=== PATIENT | female | born 1995 | race American Indian/Alaskan Native ===

== ENCOUNTER 2017-03-24 22:09 | Emergency (ER) | payer SELFPAY ==
[2017-03-24 23:00] LABS: Basophils % (Auto) 0.8 % (0.0-1.8); Eosinophils % (Auto) 1.9 % (0.0-4.3); Hematocrit 37.7 % (30.3-42.9); Hemoglobin 12.5 gm/dl (10.1-14.3); Mean Corpuscular HGB Conc 33 % (30-34); Mean Corpuscular Hemoglobin 30 pg (28-32); Mean Corpuscular Volume 90 fl (79-97); Platelet Count 243 K/mm3 (140-440); Red Blood Count 4.18 M/mm3 (3.65-5.03); Red Cell Distribution Width 14.2 % (13.2-15.2); White Blood Count 7.9 K/mm3 (4.5-11.0)
[2017-03-24 23:16] LABS: Alanine Aminotransferase 10 units/L (7-56); Albumin 4.1 g/dL (3.9-5); Albumin/Globulin Ratio 1.4 %; Alkaline Phosphatase 45 units/L (35-129); Anion Gap 16 mmol/L; BUN/Creatinine Ratio 21.66; Blood Urea Nitrogen 13 mg/dL (7-17); Calcium 8.9 mg/dL (8.4-10.2); Carbon Dioxide 22 mmol/L (22-30); Chloride 106.3 mmol/L (98-107); Glucose 92 mg/dL (65-100); Lipase 66 units/L (13-60); Sodium 140 mmol/L (137-145)
[2017-03-25 00:19] VITALS: BP 126/102
--- NOTE | 2017-03-25 01:33 | Ultrasound Report ---
FINAL REPORT PROCEDURE: US OB TRANSVAGINAL TECHNIQUE: Real-time transvaginal sonography of the uterus, placenta, amniotic fluid, adnexa, and fetus was performed with image documentation. Measurements were obtained to determine age/size. M-mode Doppler was used to document heartbeat. CPT 32693 HISTORY: abd pain COMPARISON: No prior studies are available for comparison. FINDINGS: There is an intrauterine gestational sac measuring 5.4 millimeters. This corresponds to an estimated gestational age of 5 weeks and 2 days. No pole, yolk sac or cardiac activity is seen. Uterus measures 10.4 x 5.1 x 6 centimeters. Right ovary measures 3.7 x 2 x 2.3 centimeters. Left ovary measures 1.9 x 1.7 x 1.5 centimeters. There is no ovarian mass or torsion. There is no free fluid. IMPRESSION: Probable normal early intrauterine gestation at 5 weeks and 2 days. However at this time no pole, yolk sac or cardiac activity is seen. Followup is recommended.
--- NOTE | 2017-03-25 01:33 | Ultrasound Report ---
FINAL REPORT PROCEDURE: US OB TRANSABDOMINAL TECHNIQUE: Real-time transabdominal sonography of the uterus, placenta, amniotic fluid, adnexa, and fetus was performed with image documentation. Measurements were obtained to determine age/size. M-mode Doppler was used to document heartbeat. HISTORY: abd pain COMPARISON: No prior studies are available for comparison. FINDINGS: There is an intrauterine gestational sac measuring 5.4 millimeters. This corresponds to an estimated gestational age of 5 weeks and 2 days. No pole, yolk sac or cardiac activity is seen. Uterus measures 10.4 x 5.1 x 6 centimeters. Right ovary measures 3.7 x 2 x 2.3 centimeters. Left ovary measures 1.9 x 1.7 x 1.5 centimeters. There is no ovarian mass or torsion. There is no free fluid. IMPRESSION: Probable normal early intrauterine gestation at 5 weeks and 2 days. However at this time no pole, yolk sac or cardiac activity is seen. Followup is recommended.
[2017-03-25 01:50] LABS: Bilirubin,Urine NEG (Negative); Blood,Urine NEG (Negative); Ketones,Urine NEG (Negative); Leukocyte Esterase,Urine TR (Negative); Mucus,Urine FEW /HPF; Nitrite,Urine NEG (Negative); Protein,Urine <15 mg/dL mg/dL (Negative)
--- NOTE | 2017-03-28 19:26 | ED Elopement Review ---
ED Pt Elopement review - Results review Lab results: Laboratory Tests 03/24/17 03/24/17 03/24/17 22:43 22:43 22:43 WBC 7.9 RBC 4.18 Hgb 12.5 Hct 37.7 MCV 90 MCH 30 MCHC 33 RDW 14.2 Plt Count 243 Lymph % (Auto) 46.9 H [place]anner % (Auto) 6.9 Eos % (Auto) 1.9 Baso % (Auto) 0.8 Lymph # 3.7 Banner # 0.5 Eos # 0.1 Baso # 0.1 Seg Neutrophils % 43.5 Seg Neutrophils # 3.4 Sodium 140 Potassium 4.0 Chloride 106.3 Carbon Dioxide 22 Anion Gap 16 BUN 13 Creatinine 0.6 L Estimated GFR > 60 BUN/Creatinine Ratio 21.66 Glucose 92 Calcium 8.9 Total Bilirubin 0.20 AST 16 ALT 10 Alkaline Phosphatase 45 Total Protein 7.0 Albumin 4.1 Albumin/Globulin Ratio 1.4 Lipase 66 H HCG, Qual Positive HCG, Quant Urine Color Urine Turbidity Urine pH Ur Specific [place] Urine Protein Urine Glucose (UA) Urine Ketones Urine Blood Urine Nitrite Urine Bilirubin Urine Urobilinogen Ur Leukocyte Esterase Urine WBC (Auto) Urine RBC (Auto) U Epithel Cells (Auto) Urine Mucus 03/25/17 03/25/17 00:28 00:41 WBC RBC Hgb Hct MCV MCH MCHC RDW Plt Count Lymph % (Auto) [place]anner % (Auto) Eos % (Auto) Baso % (Auto) Lymph # [place]anner # Eos # Baso # Seg Neutrophils % Seg Neutrophils # Sodium Potassium Chloride Carbon Dioxide Anion Gap BUN Creatinine Estimated GFR BUN/Creatinine Ratio Glucose Calcium Total Bilirubin AST ALT Alkaline Phosphatase Total Protein Albumin Albumin/Globulin Ratio Lipase HCG, Qual HCG, Quant 2756 H Urine Color Yellow Urine Turbidity Clear Urine pH 7.0 Ur Specific [place] 1.024 Urine Protein <15 mg/dl Urine Glucose (UA) Neg Urine Ketones Neg Urine Blood Neg Urine Nitrite Neg Urine Bilirubin Neg Urine Urobilinogen 4.0 Ur Leukocyte Esterase Tr Urine WBC (Auto) 4.0 Urine RBC (Auto) 2.0 U Epithel Cells (Auto) 4.0 Urine Mucus Few - Call Back decision Pt Call Back Decision: Pt to F/U with PMD ( patient with abdominal pain and is to follow-up with [facility] TECHNICIAN to initiate outpatient care)
== END 2017-03-25 00:42 | disposition left against medical advice (07) ==
LOC: ED 22:09
DX: R10.9 Unspecified abdominal pain (principal); R11.0 Nausea; R89.8 Other abnormal findings in specimens from other organs, systems and tissues; Z53.21 Procedure and treatment not carried out due to patient leaving prior to being seen by health care provider
CPT/HCPCS: 36415; 76801; 76817; 80053; 81001; 83690; 84702; 84703; 85025

== ENCOUNTER 2020-02-02 23:25 | Emergency (ER) | payer SELFPAY ==
[2020-02-02 23:29] VITALS: BP 108/57
--- NOTE | 2020-02-03 00:28 | Emergency Department Report ---
ED General Adult HPI - General Chief complaint: Upper Respiratory Infection Stated complaint: LOW BLOOD PRESSURE,LIGHT HEADED,COUGH Source: patient Mode of arrival: Ambulatory Limitations: No Limitations - History of Present Illness Initial comments: Patient is a 24-year-old -[place]ym[place] female with a history of anxiety and depression who presented to the ED with complaint of shortness of breath, chest tightness, insomnia and generalized weakness and stated that he felt scared about being infected with coronavirus such that she has not been able to sleep for the last 3 days. Patient denies dizziness, syncope, chest pain, abdominal pain, nausea and vomiting, fever, chills, headache, back pain, diarrhea, change in vision or syncope. Patient states that no one else at home is had any similar symptoms. Patient states that she is stressed out because of the fact that she is unable to work at this time and that even her is not working yet she has 6 children to take care of. MD Complaint: Dyspnea, sore throat, insomnia -: Sudden, days(s) (3) Location: chest Radiation: non-radiation Severity scale (0 -10): 2 Quality: dull Consistency: intermittent Improves with: none Worsens with: none Associated Symptoms: denies other symptoms, shortness of breath, weakness. denies: confusion, chest pain, cough, diaphoresis, fever/chills, headaches, loss of appetite, malaise, nausea/vomiting, rash, seizure, syncope Treatments Prior to Arrival: none - Related Data Previous Rx's Medication Instructions Recorded Last Taken Type Nitrofurantoin [place]/M-Cryst 100 mg PO Q12HR #20 capsule 02/08/14 Unknown Rx [Macrobid] hydrOXYzine PAMOATE [Vistaril] 25 mg PO Q6HR PRN #30 capsule 02/03/20 Unknown Rx Allergies Allergy/AdvReac Type Severity Reaction Status Date / Time No Known Allergies Allergy Verified 02/03/14 20:24 ED Review of Systems ROS: Stated complaint: LOW BLOOD PRESSURE,LIGHT HEADED,COUGH Other details as noted in HPI Constitutional: denies: chills, fever Eyes: denies: eye pain, eye discharge, vision change ENT: throat pain. denies: ear pain Respiratory: shortness of breath. denies: cough, wheezing Cardiovascular: denies: chest pain, palpitations Endocrine: no symptoms reported Gastrointestinal: denies: abdominal pain, nausea, diarrhea Genitourinary: denies: urgency, dysuria, discharge Musculoskeletal: denies: back pain, joint swelling, arthralgia Skin: denies: rash, lesions Neurological: denies: headache, weakness, paresthesias Psychiatric: anxiety. denies: depression, visual hallucinations, homicidal thoughts, suicidal thoughts Hematological/Lymphatic: denies: easy bleeding, easy bruising ED Past Medical Hx - Past Medical History Hx Hypertension: No Hx Diabetes: No Hx Deep Vein Thrombosis: No Hx Renal Disease: No Hx Sickle Cell Disease: No Hx Seizures: No Hx Psychiatric Treatment: Yes Hx Asthma: Yes Hx HIV: No Additional medical history: low blood sugar and low BP - Surgical History Additional Surgical History: tonsilectomy and adenoids, - Social History Smoking Status: Current Some Day Smoker Substance Use Type: None - Medications Home Medications: Home Medications Medication Instructions Recorded Confirmed Last Taken Type Nitrofurantoin [place]/M-Cryst 100 mg PO Q12HR #20 capsule 02/08/14 Unknown Rx [Macrobid] hydrOXYzine PAMOATE [Vistaril] 25 mg PO Q6HR PRN #30 capsule 02/03/20 Unknown Rx ED Physical Exam - General Limitations: No Limitations General appearance: alert, in no apparent distress - Head Head exam: Present: atraumatic, normocephalic, normal inspection - Eye Eye exam: Present: normal appearance, PERRL, EOMI Pupils: Present: normal accommodation - ENT ENT exam: Present: normal exam, normal orophraynx, mucous membranes moist, TM's normal bilaterally, normal external ear exam - Neck Neck exam: Present: normal inspection, full ROM - Respiratory Respiratory exam: Present: normal lung sounds bilaterally. Absent: respiratory distress, wheezes, rales, rhonchi, stridor, chest wall tenderness, accessory muscle use - Cardiovascular Cardiovascular Exam: Present: regular rate, normal rhythm, normal heart sounds. Absent: systolic murmur, diastolic murmur, rubs, gallop - GI/Abdominal GI/Abdominal exam: Present: soft, normal bowel sounds. Absent: tenderness, guarding, rebound, hyperactive bowel sounds, organomegaly - Extremities Exam Extremities exam: Present: normal inspection, full ROM, normal capillary refill - Back Exam Back exam: Present: normal inspection, full ROM. Absent: tenderness, CVA tenderness (R), muscle spasm, paraspinal tenderness, vertebral tenderness - Neurological Exam Neurological exam: Present: alert, oriented X3, CN II-XII intact, normal gait, reflexes normal - Psychiatric Psychiatric exam: Present: normal affect, depressed, anxious. Absent: agitated, flat affect, manic, homicidal ideation, suicidal ideation - Skin Skin exam: Present: warm, dry, intact, normal color. Absent: rash ED Course Vital Signs 02/02/20 23:27 Temperature 97.8 F Pulse Rate 76 Respiratory 18 Rate Blood Pressure 108/57 O2 Sat by Pulse 99 Oximetry ED Medical Decision Making - Medical Decision Making This is a 24-year-old female with a history of anxiety and depression who presented to the ED with worsening shortness of breath, feeling scared, chest tightness and insomnia with generalized weakness and sore throat for the last 3 days. In the ED, patient is alert and oriented x3 and is not in distress. Patient symptoms are likely due to panic attack, anxiety or worsening depression based on the history and physical exam findings. Patient was discharged home on Vistaril for anxiety and advised to follow-up with her primary care physician in 3 to 5 days for reevaluation. Patient was advised to return to the ED immediately if symptoms get worse. - Differential Diagnosis anxiety, panic attacks; depression; URI Critical care attestation.: If time is entered above; I have spent that time in minutes in the direct care of this critically ill patient, excluding procedure time. ED Disposition Clinical Impression: Anxiety as acute reaction to exceptional stress, Shortness of breath Disposition: DC-01 TO HOME OR SELFCARE Is pt being admited?: No Does the pt Need Aspirin: No Condition: Stable Instructions: Dyspnea (ED), Generalized Anxiety Disorder (ED) Additional Instructions: All your symptoms are likely due to anxiety or panic attack. Therefore take medication as advised, follow-up with your primary care physician in 3 to 5 days for reevaluation. Return to the ED immediately if symptoms get worse. Prescriptions: hydrOXYzine PAMOATE [Vistaril] 25 mg PO Q6HR PRN #30 capsule PRN Reason: Anxiety Referrals: [facility] [Provider Group] - 3-5 Days Time of Disposition: 00:29 Print Language: ROMANSH
== END 2020-02-03 00:45 | disposition home or self-care (01) ==
LOC: ED 23:25
DX: F41.9 Anxiety disorder, unspecified (principal); F43.0 Acute stress reaction; R06.02 Shortness of breath; J45.909 Unspecified asthma, uncomplicated; F17.200 Nicotine dependence, unspecified, uncomplicated; Z98.890 Other specified postprocedural states; Z79.899 Other long term (current) drug therapy
CPT/HCPCS: 99281

== ENCOUNTER 2020-02-22 00:41 | Inpatient (IN) | payer OTHER ==
[2020-02-22] MEDS ORDERED: ONDANSETRON 4 MG/2 ML INJ IV ONE ×2 (01:45→05:11)
[2020-02-22] MEDS ORDERED: SODIUM CHLORIDE 0.9% 1000 ML 1,000 ML IV ONE (01:45)
[2020-02-22] MEDS ORDERED: MORPHINE 4 MG/1 ML INJ IV ONE (01:45)
[2020-02-22 01:48] LABS: Basophils # (Auto) 0.1 K/mm3 (0.0-0.1); Basophils % (Auto) 0.9 % (0.0-1.8); Eosinophils # (Auto) 0.1 K/mm3 (0.0-0.4); Eosinophils % (Auto) 1.2 % (0.0-4.3); Hematocrit 42.7 % (30.3-42.9); Hemoglobin 14.6 gm/dl (10.1-14.3); Lymphocytes % (Auto) 17.7 % (13.4-35.0); Mean Corpuscular HGB Conc 34 % (30-34); Mean Corpuscular Volume 96 fl (79-97); Monocytes # (Auto) 0.8 K/mm3 (0.0-0.8); Monocytes % (Auto) 7.1 % (0.0-7.3); Platelet Count 201 K/mm3 (140-440); Red Blood Count 4.44 M/mm3 (3.65-5.03); Red Cell Distribution Width 12.5 % (13.2-15.2)
[2020-02-22 02:12] LABS: Alanine Aminotransferase 11 units/L (7-56); Albumin 4.8 g/dL (3.9-5); BUN/Creatinine Ratio 16; Blood Urea Nitrogen 11 mg/dL (7-17); Calcium 9.3 mg/dL (8.4-10.2); Hemolysis Index 3
[2020-02-22 02:20] LABS: Bilirubin,Urine NEG (Negative); Blood,Urine NEG (Negative); Color,Urine Yellow (Yellow); Mucus,Urine FEW /HPF; Protein,Urine <15 mg/dL mg/dL (Negative); RBC,Urine < 1.0 /HPF (0.0-6.0)
--- NOTE | 2020-02-22 02:27 | Emergency Department Report ---
ED Abdominal Pain HPI - General Chief Complaint: Abdominal Pain Stated Complaint: SEVERE ABDOMINAL PAIN Time Seen by Provider: 02/22/20 01:46 Source: patient Mode of arrival: Ambulatory Limitations: No Limitations - History of Present Illness Initial Comments: Patient is a 24-year-old female presents emergency room complaints of periumbilical abdominal pain that began last night. She states it feels like a sharp stabbing pain. She states that she has associated nausea. She states that she forced herself to have one episode of vomiting. She states that she has had normal bowel movements. She denies any diarrhea or urinary symptoms. She denies any past medical history or allergies to medications. She states her last menstrual cycle was January 25. She states that she has had 4 C-sections, she denies any other abdominal surgeries. Severity scale (0 -10): 4 - Related Data Previous Rx's Medication Instructions Recorded Last Taken Type Nitrofurantoin [place]/M-Cryst 100 mg PO Q12HR #20 capsule 02/08/14 Unknown Rx [Macrobid] hydrOXYzine PAMOATE [Vistaril] 25 mg PO Q6HR PRN #30 capsule 02/03/20 Unknown Rx Allergies Allergy/AdvReac Type Severity Reaction Status Date / Time No Known Allergies Allergy Verified 02/22/20 04:22 ED Review of Systems ROS: Stated complaint: SEVERE ABDOMINAL PAIN Other details as noted in HPI Comment: All other systems reviewed and negative ED Past Medical Hx - Past Medical History Hx Hypertension: No Hx Diabetes: No Hx Deep Vein Thrombosis: No Hx Renal Disease: No Hx Sickle Cell Disease: No Hx Seizures: No Hx Psychiatric Treatment: Yes Hx Asthma: Yes Hx HIV: No Additional medical history: low blood sugar and low BP - Surgical History Additional Surgical History: tonsilectomy and adenoids, - Social History Smoking Status: Never Smoker Substance Use Type: None - Medications Home Medications: Home Medications Medication Instructions Recorded Confirmed Last Taken Type Nitrofurantoin [place]/M-Cryst 100 mg PO Q12HR #20 capsule 02/08/14 Unknown Rx [Macrobid] hydrOXYzine PAMOATE [Vistaril] 25 mg PO Q6HR PRN #30 capsule 02/03/20 Unknown Rx ED Physical Exam - General Limitations: No Limitations General appearance: alert, in no apparent distress - Head Head exam: Present: atraumatic, normocephalic - Eye Eye exam: Present: normal appearance - ENT ENT exam: Present: mucous membranes moist - Respiratory Respiratory exam: Present: normal lung sounds bilaterally. Absent: respiratory distress, wheezes, rales, rhonchi, stridor, chest wall tenderness, accessory muscle use, decreased breath sounds, prolonged expiratory - Cardiovascular Cardiovascular Exam: Present: regular rate, normal rhythm, normal heart sounds. Absent: systolic murmur, diastolic murmur, rubs, gallop - GI/Abdominal GI/Abdominal exam: Present: soft, tenderness (periumbilical), normal bowel sounds. Absent: distended, guarding, rebound, rigid - Neurological Exam Neurological exam: Present: alert, oriented X3 - Psychiatric Psychiatric exam: Present: normal affect, normal mood - Skin Skin exam: Present: warm, dry, intact ED Course Vital Signs 02/22/20 00:46 Temperature 97.9 F Pulse Rate 78 Respiratory 18 Rate Blood Pressure 104/56 O2 Sat by Pulse 99 Oximetry - Consultations Consultation #1: 02/22/20 04:[address] Suh, general surgery recommended to admit to hospitalist, will see patient this morning 02/22/20 04:[address] Aviles, hospitalist, will accept and resume care of patient, will admit to hospital ED Medical Decision Making - Lab Data Result diagrams: 02/22/20 01:36 02/22/20 01:36 Lab Results 02/22/20 02/22/20 02/22/20 Range/Units 01:36 01:36 01:36 WBC 11.5 H (4.5-11.0) K/mm3 RBC 4.44 (3.65-5.03) M/mm3 Hgb 14.6 H (10.1-14.3) gm/dl Hct 42.7 (30.3-42.9) % MCV 96 (79-97) fl MCH 33 H (28-32) pg MCHC 34 (30-34) % RDW 12.5 L (13.2-15.2) % Plt Count 201 (140-440) K/mm3 Lymph % (Auto) 17.7 (13.4-35.0) % [place] % (Auto) 7.1 (0.0-7.3) % Eos % (Auto) 1.2 (0.0-4.3) % Baso % (Auto) 0.9 (0.0-1.8) % Lymph # 2.0 (1.2-5.4) K/mm3 [place] # 0.8 (0.0-0.8) K/mm3 Eos # 0.1 (0.0-0.4) K/mm3 Baso # 0.1 (0.0-0.1) K/mm3 Seg Neutrophils % 73.1 H (40.0-70.0) % Seg Neutrophils # 8.4 H (1.8-7.7) K/mm3 Sodium 139 (137-145) mmol/L Potassium 4.0 (3.6-5.0) mmol/L Chloride 103.8 (98-107) mmol/L Carbon Dioxide 25 (22-30) mmol/L Anion Gap 14 mmol/L BUN 11 (7-17) mg/dL Creatinine 0.7 (0.7-1.2) mg/dL Estimated GFR > 60 ml/min BUN/Creatinine Ratio 16 % Glucose 100 (65-100) mg/dL Calcium 9.3 (8.4-10.2) mg/dL Total Bilirubin 0.20 (0.1-1.2) mg/dL AST 17 (5-40) units/L ALT 11 (7-56) units/L Alkaline Phosphatase 44 (35-129) units/L Total Protein 7.5 (6.3-8.2) g/dL Albumin 4.8 (3.9-5) g/dL Albumin/Globulin Ratio 1.8 % Lipase 42 (13-60) units/L HCG, Qual (Negative) Urine Color (Yellow) Urine Turbidity (Clear) Urine pH (5.0-7.0) Ur Specific [place] (1.003-1.030) Urine Protein (Negative) mg/dL Urine Glucose (UA) (Negative) mg/dL Urine Ketones (Negative) mg/dL Urine Blood (Negative) Urine Nitrite (Negative) Urine Bilirubin (Negative) Urine Urobilinogen (<2.0) mg/dL Ur Leukocyte Esterase (Negative) Urine WBC (Auto) (0.0-6.0) /HPF Urine RBC (Auto) (0.0-6.0) /HPF U Epithel Cells (Auto) (0-13.0) /HPF Urine Mucus /HPF 02/22/20 02/22/20 Range/Units 01:36 01:56 WBC (4.5-11.0) K/mm3 RBC (3.65-5.03) M/mm3 Hgb (10.1-14.3) gm/dl Hct (30.3-42.9) % MCV (79-97) fl MCH (28-32) pg MCHC (30-34) % RDW (13.2-15.2) % Plt Count (140-440) K/mm3 Lymph % (Auto) (13.4-35.0) % [place] % (Auto) (0.0-7.3) % Eos % (Auto) (0.0-4.3) % Baso % (Auto) (0.0-1.8) % Lymph # (1.2-5.4) K/mm3 [place] # (0.0-0.8) K/mm3 Eos # (0.0-0.4) K/mm3 Baso # (0.0-0.1) K/mm3 Seg Neutrophils % (40.0-70.0) % Seg Neutrophils # (1.8-7.7) K/mm3 Sodium (137-145) mmol/L Potassium (3.6-5.0) mmol/L Chloride (98-107) mmol/L Carbon Dioxide (22-30) mmol/L Anion Gap mmol/L BUN (7-17) mg/dL Creatinine (0.7-1.2) mg/dL Estimated GFR ml/min BUN/Creatinine Ratio % Glucose (65-100) mg/dL Calcium (8.4-10.2) mg/dL Total Bilirubin (0.1-1.2) mg/dL AST (5-40) units/L ALT (7-56) units/L Alkaline Phosphatase (35-129) units/L Total Protein (6.3-8.2) g/dL Albumin (3.9-5) g/dL Albumin/Globulin Ratio % Lipase (13-60) units/L HCG, Qual Negative (Negative) Urine Color Yellow (Yellow) Urine Turbidity Clear (Clear) Urine pH 5.0 (5.0-7.0) Ur Specific [place] 1.023 (1.003-1.030) Urine Protein <15 mg/dl (Negative) mg/dL Urine Glucose (UA) Neg (Negative) mg/dL Urine Ketones Neg (Negative) mg/dL Urine Blood Neg (Negative) Urine Nitrite Neg (Negative) Urine Bilirubin Neg (Negative) Urine Urobilinogen 2.0 (<2.0) mg/dL Ur Leukocyte Esterase Neg (Negative) Urine WBC (Auto) 1.0 (0.0-6.0) /HPF Urine RBC (Auto) < 1.0 (0.0-6.0) /HPF U Epithel Cells (Auto) 7.0 (0-13.0) /HPF Urine Mucus Few /HPF - Radiology Data Radiology results: report reviewed CT abdomen pelvis w con INDICATION / CLINICAL INFORMATION: Pt complains of periumbilical abdominal pain Hx of 4 C-Sections Omnipaque 300 / 100ml's was used for this exam.. TECHNIQUE: Axial CT imaging of the abdomen and pelvis was obtained IV contrast. Coronal and sagittal reformatted imaging obtained and reviewed. All CT scans at this location are performed using CT dose reduction for ALARA by means of automated exposure control. COMPARISON: None available. FINDINGS: CT abdomen with contrast demonstrates normal appearance of the liver, spleen, pancreas, kidneys, and adrenal glands. Gallbladder is present and grossly unremarkable. No biliary dilatation. No renal mass or hydronephrosis. There is midline diastases of the abdominal wall musculature. No abdominal wall hernia present. CT pelvis with contrast demonstrates an enlarged appendix with mild mucosal enhancement. There is an appendicolith in the proximal portion of the appendix. The appearance is consistent with mild acute appendicitis. The remainder of the GI tract is unremarkable. Small amount of free fluid is present in the posterior cul-de-sac. There is a small cyst in the right ovary consistent with postovulatory cyst. Uterus is mildly enlarged but without discrete mass. Visualized lung bases are clear. No acute skeletal abnormality. IMPRESSION: 1. Mild acute appendicitis. 2. No other significant finding. Signer Name: Hillary Mims MD Signed: 02/22/2020 4:23 AM Workstation Name: [id number] Transcribed By: Dictated By: Hillary Mims MD Electronically Authenticated By: Hillary Mims MD Signed Date/Time: 02/22/20 0423 DD/ 0417 TD/TT: - Medical Decision Making Patient is a 24-year-old female presents emergency room complaints of periumbilical abdominal pain that began last night. She states it feels like a sharp stabbing pain. She states that she has associated nausea. She states that she forced herself to have one episode of vomiting. She states that she has had normal bowel movements. She denies any diarrhea or urinary symptoms. She denies any past medical history or allergies to medications. She states her last menstrual cycle was January 25. She states that she has had 4 C-sections, she denies any other abdominal surgeries. Vitals are normal. On exam periumbilical abdominal tenderness to palpation, no guarding, no rebound, no rigidity. Labs with very mildly elevated white blood cell count at 11.5. hCG is negative. UA without evidence of UTI. CT abdomen pelvis with IV contrast 1. Mild acute appendicitis. 2. No other significant finding. Patient given IV fluids, nausea medication, pain medication, Zosyn. Patient made n.p.o. spoke with Dr. Suh, general surgery recommended to admit to hospitalist, will see patient this morning. spoke with Dr. Aviles, hospitalist, will accept and resume care of patient, will admit to hospital. Patient admitted to hospitalist service. - Differential Diagnosis UTI, bowel obstruction, appendicitis, colitis, IBS, IBD, constipation Critical care attestation.: If time is entered above; I have spent that time in minutes in the direct care o f this critically ill patient, excluding procedure time. ED Disposition Clinical Impression: Periumbilical abdominal pain Acute appendicitis Qualifiers: Acute appendicitis type: with localized peritonitis Appendicitis gangrene presence: without gangrene Appendicitis perforation presence: without perforation Appendicitis abscess presence: without abscess Qualified Code(s): K35.30 - Acute appendicitis with localized peritonitis, without perforation or gangrene Disposition: OP ADMIT IP TO THIS HOSP Is pt being admited?: Yes Does the pt Need Aspirin: No Condition: Fair Instructions: Abdominal Pain (ED) Referrals: PRIMARY CARE, [Primary Care Provider] - 3-5 Days Time of Disposition: 04:49 Print Language: AUSTRALIAN
[2020-02-22] MEDS ORDERED: HYDROmorphone 1 MG/1 ML INJ ONE ×2 (04:04→12:48)
[2020-02-22] MEDS ORDERED: HYDROmorphone 1 MG/1 ML INJ IV ONE (04:05)
--- NOTE | 2020-02-22 04:27 | Cat Scan Report ---
CT abdomen pelvis w con INDICATION / CLINICAL INFORMATION: Pt complains of periumbilical abdominal pain Hx of 4 C-Sections Omnipaque 300 / 100ml's was used for this exam.. TECHNIQUE: Axial CT imaging of the abdomen and pelvis was obtained IV contrast. Coronal and sagittal reformatted imaging obtained and reviewed. All CT scans at this location are performed using CT dose reduction for ALARA by means of automated exposure control. COMPARISON: None available. FINDINGS: CT abdomen with contrast demonstrates normal appearance of the liver, spleen, pancreas, kidneys, and adrenal glands. Gallbladder is present and grossly unremarkable. No biliary dilatation. No renal mass or hydronephrosis. There is midline diastases of the abdominal wall musculature. No abdominal wall hernia present. CT pelvis with contrast demonstrates an enlarged appendix with mild mucosal enhancement. There is an appendicolith in the proximal portion of the appendix. The appearance is consistent with mild acute a ppendicitis. The remainder of the GI tract is unremarkable. Small amount of free fluid is present in the posterior cul-de-sac. There is a small cyst in the right ovary consistent with postovulatory cyst. Uterus is mildly enlarged but without discrete mass. Visualized lung bases are clear. No acute skeletal abnormality. IMPRESSION: 1. Mild acute appendicitis. 2. No other significant finding. Signer Name: Hillary Mims MD Signed: 02/22/2020 4:23 AM Workstation Name: [id number]
[2020-02-22] MEDS ORDERED: PIPERACILLIN/TAZOBACTAM 3.375 3.375 GM/50 ML BAG IV ONE (04:31)
[2020-02-22] MEDS ORDERED: ONDANSETRON 4 MG/2 ML INJ ONE ×2 (04:55→11:58)
[2020-02-22] MEDS ORDERED: ACETAMINOPHEN 500 MG TAB PO ONE (05:20)
[2020-02-22] MEDS ORDERED: HYOSCYAMINE SUBL 0.125 MG TAB SL ONE (05:20)
[2020-02-22] MEDS ORDERED: KETOROLAC 30 MG/1 ML INJ IV ONE (05:39)
[2020-02-22] MEDS ORDERED: METOCLOPRAMIDE 10 MG/2 ML INJ IV ONE (05:39)
[2020-02-22] MEDS ORDERED: METOCLOPRAMIDE 10 MG/2 ML INJ ONE (05:41)
[2020-02-22] MEDS ORDERED: KETOROLAC 30 MG/1 ML INJ ONE (05:42)
[2020-02-22] MEDS ORDERED: MORPHINE 2 MG/1 ML INJ IV PRN (05:43)
[2020-02-22] MEDS ORDERED: ACETAMINOPHEN 325 MG TAB PO PRN (05:43)
[2020-02-22] MEDS ORDERED: ONDANSETRON 4 MG/2 ML INJ IV PRN ×2 (05:43→12:19)
[2020-02-22] MEDS ORDERED: SODIUM CHLORIDE 0.9% 1000 ML 1,000 ML IV SCH (05:45)
--- NOTE | 2020-02-22 05:47 | History and Physical Report ---
History of Present Illness History of present illness: 24-year-old woman with no medical problems comes emergency room for evaluation. She states that over the last 1 week she has been having intermittent periumbilical pain but it has worsened yesterday so she comes for further care. She describes the pain as dull, intermittent every 5 to 10 minutes, no radiation, better with pain medications given in the emergency room. She had multiple episodes of nausea vomiting. Patient will be admitted for acute appendicitis Review Of Systems: Constitutional: no weight loss, fever, chills Ears, eyes, nose, mouth and throat: no nasal congestion, no nasal discharge, no sinus pressure, blurry vision, diplopia Neck: No neck pain or rigidity. Cardiovascular: No palpitations, chest pain Respiratory: No shortness of breath, cough Gastrointestinal: No hematochezia Genitourinary : no dysuria, frequency Musculoskeletal: no muscle ache , joint pain Integumentary: no rash, no pruritis Neurological: no parathesias, focal weakness Endocrine: no cold or heat intolerance, no polyuria or polydipsia Hematologic/Lymphatic: no easy bruising, no easy bleeding, no gland swelling Allergic/Immunologic: no urticaria, no angioedema. PAST MEDICAL HISTORY: None PAST SURGICAL HISTORY: Symptoms for, tonsil, adenoids SOCIAL HISTORY: Denies alcohol, tobacco, drugs FAMILY HISTORY: Hypertension Medications and Allergies Allergies Allergy/AdvReac Type Severity Reaction Status Date / Time No Known Allergies Allergy Verified 02/22/20 04:22 Home Medications Medication Instructions Recorded Confirmed Last Taken Type Nitrofurantoin Cottle/M-Cryst 100 mg PO Q12HR #20 capsule 02/08/14 Unknown Rx [Macrobid] hydrOXYzine PAMOATE [Vistaril] 25 mg PO Q6HR PRN #30 capsule 02/03/20 Unknown Rx Active Meds: Active Medications Acetaminophen (Tylenol) 650 mg PO Q4H PRN PRN Reason: Pain MILD(1-3)/Fever >100.5/ALCARAZ Enoxaparin Sodium (Enoxaparin) 40 mg SUB-Q QDAY RACHEL Sodium Chloride (Nacl 0.9% 1000 Ml) 1,000 mls @ 150 mls/hr IV DIRECT RACHEL Morphine Sulfate (Morphine) 2 mg IV Q4H PRN PRN Reason: Pain, Moderate (4-6) Ondansetron HCl (Zofran) 4 mg IV Q4H PRN PRN Reason: Nausea And Vomiting Sodium Chloride (Sodium Chloride Flush Syringe 10 Ml) 10 ml IV BID RACHEL Sodium Chloride (Sodium Chloride Flush Syringe 10 Ml) 10 ml IV PRN PRN PRN Reason: LINE FLUSH Exam - Physical Exam Narrative exam: Gen. appearance: Patient lying in bed, no apparent distress HEENT: Normocephalic, atraumatic, pupils equally round and reactive to light, extraocular movement intact, and no sclericterus,. No JVD or thyromegaly or nodule,neck supple, no carotid bruit ,mucous membranes moist, no exudate or erythema Heart: S1, S2, regular rate and rhythm Lungs: Clear bilaterally, breathing comfortable Abdomen: Positive bowel sounds, tender in periumbilical area, nondistended, no o rganomegaly Extremity: no edema, cyanosis, clubbing Skin: No rash, nodules, warm, dry Neuro: Cranial nerves II to XII intact, speech is fluent, moves extremities, sensory intact - Constitutional Vitals: Temp Pulse Resp BP Pulse Ox 97.9 F 78 18 104/56 99 02/22/20 00:46 02/22/20 00:46 02/22/20 00:46 02/22/20 00:46 02/22/20 00:46 Results - Labs CBC & Chem 7: 02/22/20 01:36 02/22/20 01:36 Labs: Abnormal lab results 02/22/20 Range/Units 01:36 WBC 11.5 H (4.5-11.0) K/mm3 Hgb 14.6 H (10.1-14.3) gm/dl MCH 33 H (28-32) pg RDW 12.5 L (13.2-15.2) % Seg Neutrophils % 73.1 H (40.0-70.0) % Seg Neutrophils # 8.4 H (1.8-7.7) K/mm3 - Imaging and Cardiology CT scan - abdomen: report reviewed CT scan - pelvis: report reviewed Assessment and Plan Assessment Acute appendicitis N.p.o., IV fluids, IV morphine Surgery was consulted see the patient DVT prophylaxis
[2020-02-22] MEDS ORDERED: PIPERACILLIN/TAZOBACTAM 3.375 3.375 GM/50 ML BAG IV SCH (07:00)
--- NOTE | 2020-02-22 09:19 | Consultation ---
History of Present Illness Consult date: 02/22/20 Reason for consult: abdominal pain Requesting physician: DANIEL GRANT Chief complaint: abdominal pain - History of present illness History of present illness: 24yo F with chronic intermittent pain who presents to the ER with acute worsening of mid abdominal pain since last evening. CT scan done in the emergency room suggested early appendicitis. General surgery was consulted. Patient reports that she has had mid upper abdominal pain intermittently for a while. She feels pressure that extends into the chest and reflux type feeling. Has had nausea. Denies any fevers or chills. Past History Past Medical History: No medical history Past Surgical History: , tonsillectomy Social history: denies: smoking, alcohol abuse, prescription drug abuse, IV drug use Family history: no significant family history Medications and Allergies Allergies Allergy/AdvReac Type Severity Reaction Status Date / Time No Known Allergies Allergy Verified 02/22/20 04:22 Active Meds: Active Medications Acetaminophen (Tylenol) 650 mg PO Q4H PRN PRN Reason: Pain MILD(1-3)/Fever >100.5/ALCARAZ Sodium Chloride (Nacl 0.9% 1000 Ml) 1,000 mls @ 150 mls/hr IV DIRECT RACHEL Piperacillin Sod/Tazobactam Sod (Zosyn/Ns 3.375gm/50ml) 3.375 gm in 50 mls @ 100 mls/hr IV Q6H RACHEL; Protocol Last Admin: 02/22/20 07:46 Dose: 100 mls/hr Documented by: Morphine Sulfate (Morphine) 2 mg IV Q4H PRN PRN Reason: Pain, Moderate (4-6) Ondansetron HCl (Zofran) 4 mg IV Q4H PRN PRN Reason: Nausea And Vomiting Sodium Chloride (Sodium Chloride Flush Syringe 10 Ml) 10 ml IV BID RACHEL Sodium Chloride (Sodium Chloride Flush Syringe 10 Ml) 10 ml IV PRN PRN PRN Reason: LINE FLUSH Review of Systems - Constitutional chronic pain (intermittent), no fever, no chills - Cardiovascular no chest pain, no shortness of breath - Respiratory no cough - Gastrointestinal abdominal pain, nausea, heartburn, no change in bowel habits, no hematemesis, no coffee ground emesis, no BRBPR, no melena, no hematochezia - Genitourinary Genitourinary: no dysuria - Muskuloskeletal no low back pain - Integumentary no rash, no pruritis, no redness, no sores, no wounds Exam Vital Signs Temp Pulse Resp BP Pulse Ox 97.9 F 78 18 104/56 99 02/22/20 00:46 02/22/20 00:46 02/22/20 00:46 02/22/20 00:46 02/22/20 00:46 - General physical appearance Positive: well developed, well nourished, no distress, no pain - Eyes Positive: normal occular movement - Respiratory Positive: normal expansion, normal respiratory effort, clear to auscultation - Cardiovascular Rhythm: regular - Abdomen Abdomen: Present: soft, tender (significant in RLQ), bowel sounds hypoactive. Absent: distended, masses, guarding, rigid, wound - Integumentary no rash, no growths, no abnormal pigmentation - Neurologic Neurologic: alert and oriented to time, place and person, motor strength and sensation are grossly intact - Psychiatric Psychiatric: appropriate mood/affect, intact judgment & insight, cooperative Results - Labs 02/22/20 01:36 02/22/20 01:36 Abnormal lab results 02/22/20 Range/Units 01:36 WBC 11.5 H (4.5-11.0) K/mm3 Hgb 14.6 H (10.1-14.3) gm/dl MCH 33 H (28-32) pg RDW 12.5 L (13.2-15.2) % Seg Neutrophils % 73.1 H (40.0-70.0) % Seg Neutrophils # 8.4 H (1.8-7.7) K/mm3 Diabetes panel 02/22/20 Range/Units 01:36 Sodium 139 (137-145) mmol/L Potassium 4.0 (3.6-5.0) mmol/L Chloride 103.8 (98-107) mmol/L Carbon Dioxide 25 (22-30) mmol/L BUN 11 (7-17) mg/dL Creatinine 0.7 (0.7-1.2) mg/dL Glucose 100 (65-100) mg/dL Calcium 9.3 (8.4-10.2) mg/dL AST 17 (5-40) units/L ALT 11 (7-56) units/L Alkaline Phosphatase 44 (35-129) units/L Total Protein 7.5 (6.3-8.2) g/dL Albumin 4.8 (3.9-5) g/dL Calcium panel 02/22/20 Range/Units 01:36 Calcium 9.3 (8.4-10.2) mg/dL Albumin 4.8 (3.9-5) g/dL Pituitary panel 02/22/20 Range/Units 01:36 Sodium 139 (137-145) mmol/L Potassium 4.0 (3.6-5.0) mmol/L Chloride 103.8 (98-107) mmol/L Carbon Dioxide 25 (22-30) mmol/L BUN 11 (7-17) mg/dL Creatinine 0.7 (0.7-1.2) mg/dL Glucose 100 (65-100) mg/dL Calcium 9.3 (8.4-10.2) mg/dL Adrenal panel 02/22/20 Range/Units 01:36 Sodium 139 (137-145) mmol/L Potassium 4.0 (3.6-5.0) mmol/L Chloride 103.8 (98-107) mmol/L Carbon Dioxide 25 (22-30) mmol/L BUN 11 (7-17) mg/dL Creatinine 0.7 (0.7-1.2) mg/dL Glucose 100 (65-100) mg/dL Calcium 9.3 (8.4-10.2) mg/dL Total Bilirubin 0.20 (0.1-1.2) mg/dL AST 17 (5-40) units/L ALT 11 (7-56) units/L Alkaline Phosphatase 44 (35-129) units/L Total Protein 7.5 (6.3-8.2) g/dL Albumin 4.8 (3.9-5) g/dL - Imaging CT scan - abdomen: report reviewed, image reviewed CT scan - pelvis: report reviewed, image reviewed Assessment and Plan - Patient Problems (1) Acute appendicitis Current Visit: Yes Status: Acute Qualifiers: Acute appendicitis type: with localized peritonitis Appendicitis gangrene presence: without gangrene Appendicitis perforation presence: without perforation Appendicitis abscess presence: without abscess Qualified Co de(s): K35.30 - Acute appendicitis with localized peritonitis, without perforation or gangrene Plan to address problem: Pt stable. CT scan and exam are consistent with appendicitis. Pt assessed to be in need of lap appy. Procedure, risks, benefits discussed. All questions answered. Consent obtained. Proceed to surgery today. As a side note, some of her upper midline abdominal pain may be related to her diastases. I discussed this with her. There is nothing for me to repair, but if the discomfort persists, she may want to consider seeing a plastic surgeon for abdominal wall reconstruction. time=30min
[2020-02-22] MEDS ORDERED: ENOXAPARIN 40 MG/0.4 ML INJ SUB-Q SCH (10:00)
--- NOTE | 2020-02-22 10:20 | Anesthesia Consultation ---
Anesthesia Consult and Med Hx Date of service: 02/22/20 - Airway Anesthetic Teeth Evaluation: Good ROM Head & Neck: Adequate Mental/Hyoid Distance: Adequate Mallampati Class: Class II Intubation Access Assessment: Good - Pulmonary Exam CTA: Yes - Cardiac Exam Cardiac Exam: RRR - Pre-Operative Health Status ASA Pre-Surgery Classification: ASA2 Proposed Anesthetic Plan: General - Pulmonary Hx Asthma: Yes (Childhood and during ; no recent attacks or hospitalizations) - Cardiovascular System Hx Hypertension: No - Central Nervous System Hx Seizures: No Hx Psychiatric Problems: Yes - Endocrine Hx Renal Disease: No Hx Hypothyroidism: No Hx Hyperthyroidism: No - Hematic Hx Anemia: Yes (History of anemia) Hx Sickle Cell Disease: No - Other Systems Hx Alcohol Use: No Hx Substance Use: No
[2020-02-22] MEDS ORDERED: LACTATED RINGERS 1,000 ML ONE (10:22)
--- NOTE | 2020-02-22 10:22 | Anesthesia Day of Surgery ---
Anesthesia Day of Surgery - Day of Surgery Patient Examined: Yes Patient H&P Reviewed: Yes Patient is NPO: Yes
[2020-02-22] MEDS: LACTATED RINGERS 1,000 ML IV SCH ×3 (10:40→20:31)
[2020-02-22] MEDS ORDERED: BUPIVACAINE/PF (0.5%) 5 MG/1 ML 30 ML VIAL INFILTRATI ONE (11:24)
[2020-02-22] MEDS ORDERED: LIDOCAINE (1%) 10 MG/1 ML VIAL 20 ML MDV ONE (11:24)
[2020-02-22] MEDS ORDERED: fentaNYL 250 MCG/5 ML INJ ONE (11:38)
[2020-02-22] MEDS ORDERED: MIDAZOLAM 2 MG/2 ML INJ ONE (11:56)
[2020-02-22] MEDS ORDERED: PHENYLEPHRINE/NS 1,000 MCG/10 ML SYRINGE (OR USE) IV ONE (11:58)
[2020-02-22] MEDS ORDERED: SUCCINYLCHOLINE CHLORIDE 200 MG/10 ML INJ MDV ONE (11:58)
[2020-02-22] MEDS ORDERED: GLYCOPYRROLATE 0.4 MG/2 ML INJ ONE (11:58)
[2020-02-22] MEDS ORDERED: propofoL 200 MG/20 ML VIAL IV ONE (11:58)
[2020-02-22] MEDS ORDERED: NEOSTIGMINE 10MG/10 ML INJ MDV ONE (11:58)
[2020-02-22] MEDS ORDERED: LIDOCAINE MPF (2%) 20 MG/1 ML VIAL 5 ML ONE (11:58)
[2020-02-22] MEDS ORDERED: ROCURONIUM 50 MG/5 ML INJ IV ONE (11:58)
[2020-02-22] MEDS ORDERED: HYDROmorphone 1 MG/1 ML INJ IV PRN ×2 (12:19→23:28)
[2020-02-22] MEDS ORDERED: BUPIVACAINE-EPINEPHRINE/PF 0.5%-1:200,000 (30 ML) VIAL INFILTRATI ONE (12:23)
[2020-02-22] MEDS ORDERED: BUPIVACAINE/PF (0.25%) 2.5 MG/ML 30 ML VIAL INFILTRATI ONE (12:46)
[2020-02-22] MEDS ORDERED: LIDOCAINE (1%) 10 MG/1 ML VIAL 20 ML MDV INFILTRATI ONE (12:46)
[2020-02-22] MEDS ORDERED: HYDROcodone/ACETAMINOPHEN 5-325 MG TAB PO PRN (13:03)
--- NOTE | 2020-02-22 13:03 | Post Operative Note ---
Date of procedure: 02/22/20 (dictation:[id number]) Pre-op diagnosis: acute appendicitis Post-op diagnosis: same Findings: thickened appendix Procedure: lap appy IVF 1L EBL min Anesthesia: GETA Surgeon: JUAN JOSE BEST Estimated blood loss: minimal Pathology: list (appendix) Specimen disposition: to lab Condition: stable Disposition: PACU
--- NOTE | 2020-02-22 16:26 | Operative Report ---
PREOPERATIVE DIAGNOSIS: Acute appendicitis. POSTOPERATIVE DIAGNOSIS: Acute appendicitis. PROCEDURE: Laparoscopic appendectomy. ATTENDING PHYSICIAN: Geovanny Suh MD ANESTHESIA: General. ESTIMATED BLOOD LOSS: Minimal. FLUIDS: 1 liter. FINDINGS: Moderately enlarged appendix. No evidence of rupture. SPECIMENS: Appendix. DRAINS: None. COMPLICATIONS: None. DISPOSITION: Stable, transferred to recovery room. INDICATIONS: This is a 24-year-old female who presented with a less than 1-day history of acute onset of abdominal pain associated with nausea and vomiting. CT scan confirmed evidence for acute appendicitis. The patient is assessed to be need for surgery. Procedure, risks, benefits were explained to the patient. Risks include but were not limited to infection, bleeding, pain, injury to surrounding structures, possible need for further procedures in the future. The patient understood and consented. OPERATIVE NOTE: The patient was brought to the operating room and placed on the table in supine position. After adequate general anesthesia was established, the patient was prepped and draped in the usual sterile fashion. Ancef had been administered preoperatively. SCDs were in place. Time-out was called. I began by placing a Veress needle in left upper quadrant. I was able to insufflate on the first attempt. Thereafter, I placed a 5 mm port in the left lower quadrant. Using the Optiview technique, I entered the peritoneal cavity safely. There was no injury to the structures underneath the Veress needle. Veress needle was removed. Under direct vision, a 12 mm port was placed in her old Pfannenstiel incision just to the left of midline and a 5 mm port was placed in the inferior aspect of the umbilicus. The patient was placed in Trendelenburg, rotated to left. We were able to easily identify the location of the appendix. The small bowel that was adjacent was not adhered to it. However, the base of the appendix and the ileocecal valve were in very close proximity, which required a very careful dissection to separate the fat tissue between the two. We proceeded carefully and safely. Mesoappendix was divided with the LigaSure device. Once we had dissected out the base, I could clearly see the junction of the ileum and the cecum and we had safely created the space between that and the base of the appendix. We then placed the laparoscopic stapler 45 mm with a blue load and divided the base. We had a nice flush staple line with the cecum. Specimen was left on the side. We cleaned up the area with Ray-Vahe. We saw no evidence of any bleeding. Staple line was completely intact. The small bowel that was adjacent was completely normal. There was no evidence of any injury. Once we assured everything looked good, specimen was placed in EndoCatch bag. We then desufflated the abdomen per the virus protocol to minimize exposure into the room and once the abdomen was essentially desufflated, we then removed the ports, removed the EndoCatch bag from the 12 mm port site. Using 0 Vicryl stitch, I closed the fascia at the 12 mm port site. Local was injected into all the incisions. 4-0 Monocryl subcuticular stitches were then placed. Skin was cleaned and dried. Dermabond was placed. The patient tolerated the procedure well. There were no complications. All counts were correct at the end of the case. JOB# [id number] CLAY/JF
--- NOTE | 2020-02-22 17:02 | Post Anesthesia Evaluation ---
- Post Anesthesia Evaluation Patient Participated: Yes Airway Patent: Yes Stable Respiratory Function: Yes Nausea/Vomiting: No Temp > 96.8F: Yes Pain Manageable: Yes Adequeate Hydration: Yes Anesthesia Complications: No Block Receding Appropriately: Not Applicable Patient on Ventilator: No
[2020-02-22] MEDS: KETOROLAC 30 MG/1 ML INJ IV SCH (17:03)
[2020-02-22] MEDS: METOCLOPRAMIDE 10 MG/2 ML INJ IV PRN (18:39)
[2020-02-23] MEDS: KETOROLAC 30 MG/1 ML INJ IV SCH ×4 (00:21→10:11)
[2020-02-23] MEDS ORDERED: SODIUM CHLORIDE 0.9% 1000 ML 1,000 ML IV ONE (02:55)
[2020-02-23] MEDS ORDERED: SODIUM CHLORIDE 0.9% 1000 ML 1,000 ML IV SCH (03:15)
[2020-02-23 04:28] LABS: Basophils % (Auto) 0.5 % (0.0-1.8); Eosinophils # (Auto) 0.1 K/mm3 (0.0-0.4); Eosinophils % (Auto) 1.2 % (0.0-4.3); Hematocrit 32.5 % (30.3-42.9); Hemoglobin 11.5 gm/dl (10.1-14.3); Lymphocytes # (Auto) 1.5 K/mm3 (1.2-5.4); Lymphocytes % (Auto) 27.3 % (13.4-35.0); Mean Corpuscular HGB Conc 35 % (30-34); Mean Corpuscular Volume 96 fl (79-97); Monocytes # (Auto) 0.5 K/mm3 (0.0-0.8); Monocytes % (Auto) 8.3 % (0.0-7.3); Platelet Count 141 K/mm3 (140-440); Red Blood Count 3.38 M/mm3 (3.65-5.03); Red Cell Distribution Width 12.6 % (13.2-15.2)
[2020-02-23 04:56] LABS: BUN/Creatinine Ratio 12; Blood Urea Nitrogen 7 mg/dL (7-17); Calcium 7.6 mg/dL (8.4-10.2); Hemolysis Index 6
[2020-02-23 08:05] VITALS: BP 86/47
[2020-02-23] MEDS: METOCLOPRAMIDE 10 MG/2 ML INJ IV PRN (10:00)
--- NOTE | 2020-02-23 10:16 | Discharge Summary ---
Providers - Providers Date of Admission: 02/22/20 05:24 Date of discharge: 02/23/20 Attending physician: TITI LORD 02/22/20 04:46 Consult to Physician [CONS] Stat Comment: Consulting Provider: JUAN JOSE BEST Physician Instructions: Reason For Exam: appendicitis Primary care physician: GAME PRODUCER Hospitalization Condition: Fair Procedures: Appendectomy Date of procedure: 02/22/20 (dictation:[id number]) Pre-op diagnosis: acute appendicitis Post-op diagnosis: same thickened appendix Procedure: lap appy IVF 1L EBL min Anesthesia: GETA Surgeon: [facility] course: S/p Appendectomy--Post op doing well Disposition: DC-01 TO HOME OR SELFCARE Core Measure Documentation - Palliative Care Palliative Care/ Comfort Measures: Not Applicable - Core Measures Any of the following diagnoses?: none Exam - Constitutional Vitals: Temp Pulse Resp BP Pulse Ox 99.6 F 53 L 18 86/47 98 02/23/20 07:24 02/23/20 07:24 02/23/20 08:08 02/23/20 07:24 02/23/20 07:24 General appearance: Present: no acute distress, well-nourished - EENT Eyes: Present: PERRL ENT: hearing intact, clear oral mucosa - Neck Neck: Present: supple, normal ROM - Respiratory Respiratory effort: normal Respiratory: bilateral: CTA - Cardiovascular Heart Sounds: Present: S1 & S2. Absent: rub, click - Extremities Extremities: pulses symmetrical, No edema Peripheral Pulses: within normal limits - Abdominal General gastrointestinal: Present: soft, non-tender, non-distended, normal bowel sounds Female genitourinary: Present: normal - Integumentary Integumentary: Present: clear, warm, dry - Musculoskeletal Musculoskeletal: gait normal, strength equal bilaterally - Psychiatric Psychiatric: appropriate mood/affect, intact judgment & insight - Neurologic Neurologic: CNII-XII intact, moves all extremities Plan Activity: no restrictions Diet: clear liquids Follow up with: IRAIDA CHMAPION MD [Primary Care Provider] - 3-5 Days JUAN JOSE BEST MD [Staff Physician] - 7 Days
--- NOTE | 2020-02-23 11:07 | Progress Note ---
Assessment and Plan - Patient Problems (1) Acute appendicitis Current Visit: Yes Status: Acute Qualifiers: Acute appendicitis type: with localized peritonitis Appendicitis gangrene presence: without gangrene Appendicitis perforation presence: without perforation Appendicitis abscess presence: without abscess Qualified Code(s): K35.30 - Acute appendicitis with localized peritonitis, without perforation or gangrene Plan to address problem: Pt stable. s/p lap appy. Appears to be doing well. Gave her an intra-abdominal photograph demonstrating her diastases recti. Reminded her that should she continue to have discomfort in this area she would need to see a plastic surgeon for abdominal wall reconstruction. Recommendations: 1. Patient okay for discharge from my standpoint 2. Diet as tolerated 3. Encouraged ambulation. Explained this will help absorb intra-abdominal gas which will help relieve her shoulder discomfort. 4. May shower tomorrow. Instructed to pat dry wounds 5. Follow-up in about 2 weeks Please call with questions Subjective Date of service: 02/23/20 Patient Reports: Positive: feels better, flatus, no bowel movement, other (Having shoulder pain - improved with change in position. Able to tolerate breakfast this morning. Ready to go home). Negative: nausea, vomiting Objective Vital Signs - 12hr 02/23/20 02/23/20 02/23/20 00:05 00:21 02:00 Temperature 98.1 F Pulse Rate 54 L Respiratory 18 18 18 Rate Blood Pressure Blood Pressure 81/40 [Left] Blood Pressure [Right] O2 Sat by Pulse 97 Oximetry 02/23/20 02/23/20 02/23/20 02:36 04:38 04:46 Temperature 98.1 F 98.6 F Pulse Rate 58 L Respiratory 16 18 18 Rate Blood Pressure 75/37 Blood Pressure [Left] Blood Pressure 96/58 [Right] O2 Sat by Pulse Oximetry 02/23/20 02/23/20 02/23/20 05:08 05:55 07:24 Temperature 99.6 F Pulse Rate 53 L Respiratory 18 18 20 Rate Blood Pressure 86/47 Blood Pressure [Left] Blood Pressure [Right] O2 Sat by Pulse 98 Oximetry 02/23/20 08:08 Temperature Pulse Rate Respiratory 18 Rate Blood Pressure Blood Pressure [Left] Blood Pressure [Right] O2 Sat by Pulse Oximetry - General physical appearance no distress, no pain, other (Looks well) - Respiratory normal expansion, normal respiratory effort - Abdomen soft, distended (Mild), not guarding, not rigid, surgical scars (Clear, dry, intact) - Psychiatric oriented to time, oriented to person, oriented to place, speech is normal, mem ory intact - Labs 02/23/20 04:02 02/23/20 04:02 Diabetes panel 02/23/20 Range/Units 04:02 Sodium 137 (137-145) mmol/L Potassium 3.7 (3.6-5.0) mmol/L Chloride 108.0 H (98-107) mmol/L Carbon Dioxide 19 L (22-30) mmol/L BUN 7 (7-17) mg/dL Creatinine 0.6 L (0.7-1.2) mg/dL Glucose 75 (65-100) mg/dL Calcium 7.6 L D (8.4-10.2) mg/dL Calcium panel 02/23/20 Range/Units 04:02 Calcium 7.6 L D (8.4-10.2) mg/dL Pituitary panel 02/23/20 Range/Units 04:02 Sodium 137 (137-145) mmol/L Potassium 3.7 (3.6-5.0) mmol/L Chloride 108.0 H (98-107) mmol/L Carbon Dioxide 19 L (22-30) mmol/L BUN 7 (7-17) mg/dL Creatinine 0.6 L (0.7-1.2) mg/dL Glucose 75 (65-100) mg/dL Calcium 7.6 L D (8.4-10.2) mg/dL Adrenal panel 02/23/20 Range/Units 04:02 Sodium 137 (137-145) mmol/L Potassium 3.7 (3.6-5.0) mmol/L Chloride 108.0 H (98-107) mmol/L Carbon Dioxide 19 L (22-30) mmol/L BUN 7 (7-17) mg/dL Creatinine 0.6 L (0.7-1.2) mg/dL Glucose 75 (65-100) mg/dL Calcium 7.6 L D (8.4-10.2) mg/dL
== END 2020-02-23 13:00 | disposition home or self-care (01) | DRG 343 ==
LOC: ED 00:41 → SUATTDRO 00:41 → 2B-ACE 05:24
PROVIDERS: ADMIT Internal Medicine; ATTEND Internal Medicine
PROC: 0DTJ4ZZ Resection of Appendix, Percutaneous Endoscopic Approach (ICD-10-PCS; principal; 2020-02-22)
DX: K35.30 Acute appendicitis with localized peritonitis, without perforation or gangrene (principal); J45.909 Unspecified asthma, uncomplicated; Z82.49 Family history of ischemic heart disease and other diseases of the circulatory system; Z79.899 Other long term (current) drug therapy
CPT/HCPCS: 36415; 74177; 80048; 80053; 81001; 83690; 84703; 85025; 88304; G0378; J0330; J1170; J1885; J2250; J2270; J2370; J2405; J2543; J2704; J2710; J2765; J3010; J7030; J7120; Q9967

== ENCOUNTER 2021-04-22 17:06 | Emergency (ER) | payer MEDICAID ==
[2021-04-22] MEDS ORDERED: SODIUM CHLORIDE 0.9% 500 ML 500 ML IV ONE (17:27)
[2021-04-22] MEDS ORDERED: ONDANSETRON 4 MG/2 ML INJ IV ONE (17:27)
--- NOTE | 2021-04-22 17:31 | Emergency Department Report ---
ED General Adult HPI - General Chief complaint: Nausea/Vomiting/Diarrhea Stated complaint: LOW BLOOD PRESSURE Time Seen by Provider: 04/22/21 17:21 Source: patient Mode of arrival: Stretcher Limitations: No Limitations - History of Present Illness Initial comments: Patient is 25 years old female 5 para 4 at 6-week gestation. Patient presented to the ER by EMS from home for evaluation of hypotension and dizziness. Patient stated that she did not eat anything today. EMS stated that patient blood pressure was low and patient received 1 L of normal saline. Patient stated that she is feeling much better now. Patient denied any vaginal bleeding or vaginal discharge. No chest pain or shortness of breath. - Related Data Previous Rx's Medication Instructions Recorded Last Taken Type oxyCODONE /ACETAMINOPHEN [Percocet 1 tab PO Q6HR PRN #16 tablet 02/23/20 Unknown Rx 5/325] Nitrofurantoin [place]/M-Cryst 100 mg PO Q12HR #14 capsule 04/22/21 Unknown Rx [Macrobid CAP] Ondansetron [Zofran Odt] 4 mg PO Q8HR PRN #14 tab.rapdis 04/22/21 Unknown Rx Allergies Allergy/AdvReac Type Severity Reaction Status Date / Time No Known Allergies Allergy Verified 02/22/20 04:22 ED Review of Systems ROS: Stated complaint: LOW BLOOD PRESSURE Other details as noted in HPI Comment: All other systems reviewed and negative Constitutional: denies: chills, fever Respiratory: denies: cough, shortness of breath Cardiovascular: denies: chest pain, palpitations Gastrointestinal: abdominal pain, nausea, vomiting. denies: diarrhea, constipation, hematemesis, hematochezia Musculoskeletal: denies: back pain Neurological: denies: headache, weakness, numbness ED Past Medical Hx - Past Medical History Previous Medical History?: Yes Hx Hypertension: No Hx Diabetes: No Hx Deep Vein Thrombosis: No Hx Renal Disease: No Hx Sickle Cell Disease: No Hx Seizures: No Hx Psychiatric Treatment: Yes Hx Asthma: Yes (Childhood and during ; no recent attacks or hospitalizations) Hx HIV: No Additional medical history: low blood sugar and low BP - Surgical History Past Surgical History?: Yes Additional Surgical History: tonsilectomy and adenoids, - Social History Smoking Status: Never Smoker - Medications Home Medications: Home Medications Medication Instructions Recorded Confirmed Last Taken Type oxyCODONE /ACETAMINOPHEN [Percocet 1 tab PO Q6HR PRN #16 tablet 02/23/20 Unknown Rx 5/325] Nitrofurantoin [place]/M-Cryst 100 mg PO Q12HR #14 capsule 04/22/21 Unknown Rx [Macrobid CAP] Ondansetron [Zofran Odt] 4 mg PO Q8HR PRN #14 tab.rapdis 04/22/21 Unknown Rx ED Physical Exam - General Limitations: No Limitations General appearance: alert, in no apparent distress - Head Head exam: Present: atraumatic, normocephalic, normal inspection - Eye Eye exam: Present: normal appearance - ENT ENT exam: Present: normal exam - Neck Neck exam: Present: normal inspection - Respiratory Respiratory exam: Present: normal lung sounds bilaterally - Cardiovascular Cardiovascular Exam: Present: regular rate, normal rhythm, normal heart sounds - GI/Abdominal GI/Abdominal exam: Present: soft, normal bowel sounds. Absent: distended, tenderness, guarding, rebound, rigid, organomegaly, mass, bruit, pulsatile mass, hernia - Extremities Exam Extremities exam: Present: normal inspection, full ROM, normal capillary refill. Absent: calf tenderness - Back Exam Back exam: Present: normal inspection, full ROM. Absent: CVA tenderness (R), CVA tenderness (L) - Neurological Exam Neurological exam: Present: alert, oriented X3, CN II-XII intact - Psychiatric Psychiatric exam: Present: normal mood - Skin Skin exam: Present: warm, intact, normal color ED Course Vital Signs 04/22/21 04/22/21 17:25 20:50 Temperature 98 F Pulse Rate 50 L 74 Respiratory 18 16 Rate Blood Pressure 104/58 101/60 [Right] O2 Sat by Pulse 98 99 Oximetry ED Medical Decision Making - Lab Data Result diagrams: 04/22/21 17:32 04/22/21 17:32 - Medical Decision Making Patient is 25 years old female 5 para 4 at 6-week gestation. Patient presented to the ER by EMS from home for evaluation of hypotension and dizziness. Patient stated that she did not eat anything today. EMS stated that patient blood pressure was low and patient received 1 L of normal saline. Patient stated that she is feeling much better now. Patient denied any vaginal bleeding or vaginal discharge. No chest pain or shortness of breath. Patient received normal saline and Zofran. Patient stated that she is feeling much better. Labs reviewed and is unremarkable except for UTI, patient given Macrobid. test is negative. Patient given prescription for Zofran and advised to follow-up with her primary care physician in the next 2 to 3 days and to return to the ER if she develop any new symptoms. Critical care attestation.: If time is entered above; I have spent that time in minutes in the direct care of this critically ill patient, excluding procedure time. ED Disposition Clinical Impression: Hypotension, UTI (urinary tract infection) Disposition: TO HOME OR SELFCARE Is pt being admited?: No Condition: Stable Instructions: Hypotension, [id number] Prescriptions: Nitrofurantoin [place]/M-Cryst [Macrobid CAP] 100 mg PO Q12HR #14 capsule Ondansetron [Zofran Odt] 4 mg PO Q8HR PRN #14 tab.rapdis PRN Reason: Nausea And Vomiting Referrals: PRIMARY CARE, [Primary Care Provider] - 3-5 Days
[2021-04-22 17:42] LABS: Basophils # (Auto) 0.1 K/mm3 (0.0-0.1); Eosinophils # (Auto) 0.1 K/mm3 (0.0-0.4); Hematocrit 39.7 % (30.3-42.9); Hemoglobin 13.7 gm/dl (10.1-14.3); Lymphocytes # (Auto) 2.1 K/mm3 (1.2-5.4); Lymphocytes % (Auto) 19.4 % (13.4-35.0); Mean Corpuscular HGB Conc 35 % (30-34); Mean Corpuscular Volume 99 fl (79-97); Monocytes # (Auto) 0.5 K/mm3 (0.0-0.8); Monocytes % (Auto) 4.7 % (0.0-7.3); Platelet Count 184 K/mm3 (140-440); Red Blood Count 3.99 M/mm3 (3.65-5.03); Red Cell Distribution Width 12.6 % (13.2-15.2)
[2021-04-22 17:58] LABS: Blood Urea Nitrogen 11 mg/dL (7-17); Hemolysis Index 12
[2021-04-22 18:06] LABS: BUN/Creatinine Ratio 16
[2021-04-22 20:04] LABS: Bacteria,Urine 2+ /HPF (Negative); Bilirubin,Urine NEG (Negative); Blood,Urine LG (Negative); Color,Urine Yellow (Yellow); Mucus,Urine FEW /HPF; Urobilinogen,Urine < 2.0 mg/dL (<2.0)
[2021-04-22 20:10] LABS: RBC,Urine > 182.0 /HPF (0.0-6.0); WBC,Urine > 182.0 /HPF (0.0-6.0)
[2021-04-22 20:51] VITALS: BP 101/60
== END 2021-04-22 20:51 | disposition home or self-care (01) ==
LOC: ED 17:06
DX: O23.41 Unspecified infection of urinary tract in pregnancy, first trimester (principal); O26.51 Maternal hypotension syndrome, first trimester; J45.909 Unspecified asthma, uncomplicated; Z3A.01 Less than 8 weeks gestation of pregnancy; Z98.890 Other specified postprocedural states; Z79.899 Other long term (current) drug therapy
CPT/HCPCS: 36415; 80048; 81001; 84702; 85025; 96374; 99284; J2405; J7040